=== PATIENT | female | born 1960 | race Caucasian/White ===

== ENCOUNTER 2023-01-16 18:20 | Emergency (ER) | payer OTHER ==
[2023-01-16] MEDS ORDERED: Sodium Chloride 0.9% 10 ML Syringe FLUSH PRN (19:42)
[2023-01-16] MEDS ORDERED: Sodium Chloride 0.9% 1,000 ML IV ONE (19:43)
[2023-01-16 20:03] LABS: BASOPHILS PERCENT AUTO 0.3 % (0.1-1.3); HEMATOCRIT 46.1 % (34.3-46.0); HEMOGLOBIN 16.3 g/dL (11.2-15.5); IMMATURE GRAN ABSOLUTE AUTO 0.03 K/uL (0.00-0.23); IMMATURE GRAN PERCENT AUTO 0.9 % (0.0-0.7); LYMPHOCYTES ABSOLUTE AUTO 0.35 K/uL (0.8-3.3); LYMPHOCYTES PERCENT AUTO 10.4 % (11.4-47.7); MEAN CORPUSCULAR HEMOGLOBIN 29.5 pg (31.6-35.5); MEAN CORPUSCULAR HGB CONC 35.4 g/dL (31.6-35.5); MEAN CORPUSCULAR VOLUME 83.5 fL (81.4-99.0); MONOCYTES ABSOLUTE AUTO 0.21 K/uL (0.20-0.90); MONOCYTES PERCENT AUTO 6.2 % (3.3-12.6); NEUTROPHILS ABSOLUTE AUTO 2.78 K/uL (1.0-7.6); NEUTROPHILS PERCENT AUTO 82.2 % (40.0-78.1); PLATELET COUNT,PLT 64 K/uL (130-375); RED BLOOD CELL COUNT 5.52 M/uL (3.77-5.24); WHITE BLOOD CELL COUNT,WBC 3.4 K/uL (3.2-11.0)
[2023-01-16 20:12] LABS: BASOPHILS ABSOLUTE AUTO 0.01 K/uL (0.00-0.10)
[2023-01-16 20:21] LABS: APPEARANCE,URINE SLIGHTLY CLOUDY (CLEAR); BILIRUBIN,URINE SMALL (NEGATIVE); COLOR,URINE YELLOW (YELLOW); GLUCOSE,URINE NEGATIVE (NEGATIVE); KETONES,URINE TRACE mg/dL (NEGATIVE); LEUKOCYTE ESTERASE,URINE NEGATIVE (NEGATIVE); NITRITE,URINE NEGATIVE (NEGATIVE); OCCULT BLOOD,URINE TRACE-INTACT (NEGATIVE); PROTEIN,URINE 100 mg/dL (NEGATIVE); UROBILINOGEN,URINE 0.2 EU/dL (0.2-1.0)
[2023-01-16 20:30] LABS: ALANINE AMINOTRANSFERASE,ALT 49 U/L (12-78); ALBUMIN 3.6 g/dL (3.4-5.0); ALKALINE PHOSPHATASE 85 U/L (46-116); ASPARTATE AMNIOTRANSFERASE,AST 60 U/L (15-37); BILIRUBIN TOTAL 0.6 mg/dL (0.2-1.0); BLOOD UREA NITROGEN,BUN 18 mg/dL (7-18); CALCIUM 9.1 mg/dL (8.5-10.1); CARBON DIOXIDE,CO2 25 mmol/L (21-32); CHLORIDE,CL 94 mmol/L (100-108); CREATININE 0.9 mg/dL (0.6-1.0); EST CRCL DRUG DOSING (CG) 57.57 mL/min; ESTIMATED GFR 72 mL/min (>60); GLUCOSE RANDOM 126 mg/dL (74-106); MAGNESIUM 2.2 mg/dL (1.8-2.4); POTASSIUM,K 3.7 mmol/L (3.6-5.2); PROTEIN TOTAL,TP 7.3 g/dL (6.4-8.2); SODIUM,NA 129 mmol/L (140-148); TSH ULTRASENSITIVE 2.886 uIU/mL (0.358-3.740)
[2023-01-16 20:31] LABS: ANION GAP 13.7 mmol/L (5.0-14.0)
[2023-01-16 20:36] LABS: AMORPHOUS SEDIMENT,URINE MODERATE; BACTERIA,URINE MANY; EPITHELIAL CELLS,URINE MANY; MUCUS,URINE MANY; RBC,URINE 0-5 (0-5); WBC,URINE 0-5 (0-5)
[2023-01-16 20:37] LABS: LYME AB IgG Negative (Negative); LYME AB IgM Negative (Negative)
[2023-01-16] MEDS ORDERED: Doxycycline 100 MG Cap PO ONE (21:10)
[2023-01-16] MEDS ORDERED: Ketorolac 30 MG/ML SDV IVPUSH ONE (21:15)
[2023-01-21 14:12] LABS: BABESIA MICROTI IGG <1:10 (Neg:<1:10); BABESIA MICROTI IGM <1:10 (Neg:<1:10)
[2023-01-23 19:12] LABS: E. CHAFFEENSIS (HME) IGG TITER Negative (Neg:<1:64); E. CHAFFEENSIS (HME) IGM TITER Negative (Neg:<1:20); HGE IGG TITER Negative (Neg:<1:64); HGE IGM TITER Negative (Neg:<1:20)
[2023-01-24 13:13] LABS: A. PHAGOCYTOPHILUM IGG Negative (Neg:<1:64); A. PHAGOCYTOPHILUM IGM Negative (Neg:<1:20)
== END 2023-01-16 21:51 | disposition home or self-care (01) ==
LOC: JP.ED 18:20
DX: S80.861A Insect bite (nonvenomous), right lower leg, initial encounter (principal); M79.10 Myalgia, unspecified site; D69.6 Thrombocytopenia, unspecified; E87.1 Hypo-osmolality and hyponatremia; R74.01 Elevation of levels of liver transaminase levels; R79.82 Elevated C-reactive protein (CRP); E78.00 Pure hypercholesterolemia, unspecified; F17.210 Nicotine dependence, cigarettes, uncomplicated; Z79.899 Other long term (current) drug therapy; Z20.822 Contact with and (suspected) exposure to COVID-19; W57.XXXA Bitten or stung by nonvenomous insect and other nonvenomous arthropods, initial encounter
CPT/HCPCS: 36415; 71045; 80053; 81001; 82550; 83735; 84145; 84443; 85025; 85651; 86140; 86618; 86666; 86753; 87635; 96361; 96374; 99284; A9270; J1885; J7030; 99283; U0002